=== PATIENT | male | born 1985 ===

== ENCOUNTER 2025-06-18 04:48 | Inpatient (IN) | payer OTHER ==
[~2025-06-18] VITALS: Ht 167.6 cm; Wt 77.3 kg
[2025-06-18 05:32] LABS: COVID AG,FIA SOURCE NASAL SWAB
[2025-06-18 05:34] LABS: PLATELET COUNT (AUTO) 218 K/uL (150-450); RED BLOOD CELL COUNT(AUTO) 5.92 MIL/uL (4.50-5.90); RED CELL DISTRIBUTION WIDTH 14.1 % (11.5-14.5); WHITE BLOOD COUNT (AUTO) 10.8 K/uL (4.5-11.0)
[2025-06-18 05:49] LABS: CREATININE 1.06 mg/dL (0.60-1.30); GLUCOSE,RANDOM 117 mg/dL (70-110); SODIUM SERUM 141 mmol/L (136-145); UREA NITROGEN, BLOOD 12 mg/dL (7-18)
[2025-06-18 05:50] LABS: CALCIUM, TOTAL 9.5 mg/dL (8.8-10.5); GLOMERULAR FILTR. RATE CALC > 60 mL/min (>60)
[2025-06-18 05:57] LABS: SARS-COV2 (COVID) ANTIGEN,FIA Negative (Negative)
[2025-06-18] MEDS: POTASSIUM CHLORIDE 20 MEQ ER TABLET PO ONE (06:18)
[2025-06-18] MEDS: LORazepam 2 MG/ML VIAL IM ONE (07:50)
[2025-06-18] MEDS ORDERED: ONDANSETRON HCL 4 MG/2 ML VIAL IVP PRN (09:00)
[2025-06-18] MEDS ORDERED: BISACODYL 10 MG RECTAL RECTAL SUPPOSITORY PR PRN (09:00)
[2025-06-18] MEDS: PANTOPRAZOLE SODIUM 40 MG DR TABLET PO SCH (09:00)
[2025-06-18] MEDS: DOCUSATE SODIUM 100 MG CAPSULE PO SCH (09:00)
[2025-06-18] MEDS ORDERED: MAGNESIUM HYDROXIDE SUSPENSION 30 ML UDCUP PO PRN (09:00)
[2025-06-18] MEDS: HEPARIN SODIUM,PORCINE 5,000 UNITS/ML VIAL SQ SCH (16:17)
[2025-06-18 16:36] VITALS: BP 120/84; PULSE 89; RESP 18; TEMP 97.7; O2SAT 100
[2025-06-18 19:47] VITALS: BP 125/81; PULSE 92; RESP 18; TEMP 97.7; O2SAT 98
[2025-06-18] MEDS: ZOLPIDEM TARTRATE 5 MG TABLET PO PRN (20:53)
[2025-06-19 05:29] VITALS: BP 111/74; PULSE 76; RESP 18; TEMP 98.1; O2SAT 97
[2025-06-19 09:07] VITALS: BP 112/65; PULSE 80; RESP 20; TEMP 97.7; O2SAT 99
[2025-06-19 14:02] LABS: APPEARANCE,URINE CLEAR (CLEAR); GLUCOSE, URINE (UA) NEGATIVE (NEGATIVE); LEUKOCYTE ESTERASE ,URINE NEGATIVE (NEGATIVE); NITRATE,URINE NEGATIVE (NEGATIVE); OCCULT BLOOD,URINE NEGATIVE (NEGATIVE); PH,URINE DRUG SCREEN 5.5 (5.0-8.0); SPECIFIC GRAVITIY, URINE 1.009 (1.003-1.030)
[2025-06-19 16:14] LABS: ALCOHOL, URINE DRUG SCREEN NEGATIVE (NEGATIVE); AMPHET/METH SCREEN,URINE NEGATIVE (NEGATIVE); BARBITURATE SCREEN, URINE NEGATIVE (NEGATIVE); CANNABINOID SCREEN,URINE NEGATIVE (NEGATIVE); COCAINE SCREEN,URINE NEGATIVE (NEGATIVE); METHADONE SCREEN, URINE NEGATIVE (NEGATIVE)
[2025-06-19 20:12] VITALS: BP 105/61; PULSE 78; RESP 18; TEMP 98.2; O2SAT 97
[2025-06-20] MEDS: ACETAMINOPHEN 325 MG TABLET PO PRN (02:25)
[2025-06-20 04:27] VITALS: BP 117/82; PULSE 90; RESP 18; TEMP 97.9; O2SAT 97
[2025-06-20 07:07] LABS: PHOSPHORUS 3.2 mg/dL (2.5-4.9)
[2025-06-20 10:07] VITALS: BP 106/71; PULSE 75; RESP 18; TEMP 97.5; O2SAT 98
[2025-06-20 20:28] VITALS: BP 117/73; PULSE 80; RESP 18; TEMP 98.1; O2SAT 98
[2025-06-21 05:00] VITALS: BP 108/71; PULSE 76; RESP 17; TEMP 98.4; O2SAT 100
[2025-06-21 07:05] LABS: CALCIUM, TOTAL 8.9 mg/dL (8.8-10.5); CREATININE 1.04 mg/dL (0.60-1.30); GLOMERULAR FILTR. RATE CALC > 60 mL/min (>60); GLUCOSE,RANDOM 96 mg/dL (70-110); SODIUM SERUM 142 mmol/L (136-145); UREA NITROGEN, BLOOD 12 mg/dL (7-18)
[2025-06-21 09:15] VITALS: BP 109/76; PULSE 86; RESP 18; TEMP 98; O2SAT 97
[2025-06-21] MEDS: RINGERS SOLUTION,LACTATED 1,000 ML IV SCH (15:55)
[2025-06-22 05:06] VITALS: BP 120/80; PULSE 97; RESP 20; TEMP 97.8; O2SAT 98
[2025-06-22 08:00] VITALS: BP 125/76; PULSE 100; RESP 20; TEMP 97.3; O2SAT 97
[2025-06-22 20:01] VITALS: BP 128/86; PULSE 102; RESP 20; TEMP 97.5; O2SAT 98
[2025-06-23 04:37] VITALS: BP 110/85; PULSE 101; RESP 18; TEMP 97.2; O2SAT 97
[2025-06-23 08:54] VITALS: BP 105/75; PULSE 84; RESP 20; TEMP 97.9; O2SAT 100
[2025-06-23 20:00] VITALS: BP 116/82; PULSE 92; RESP 20; TEMP 97.7; O2SAT 100
[2025-06-24 05:53] VITALS: BP 119/79; PULSE 90; RESP 20; TEMP 97.7; O2SAT 99
[2025-06-24 08:58] VITALS: BP 121/76; PULSE 77; RESP 18; TEMP 97.5; O2SAT 100
[2025-06-24 20:05] VITALS: BP 112/78; PULSE 87; RESP 18; TEMP 98.1; O2SAT 97
[2025-06-25 05:31] VITALS: BP 101/72; PULSE 70; RESP 18; TEMP 97.9; O2SAT 96
[2025-06-25 08:47] VITALS: BP 105/67; PULSE 73; RESP 18; TEMP 97.7; O2SAT 98
[2025-06-25 12:15] LABS: GLUCOMETER DEV NAME(LOC) 6N.1C; GLUCOSE,POINT OF CARE 113 MG/DL (70-110)
[2025-06-25 16:05] VITALS: BP 105/80; PULSE 71; RESP 17; TEMP 97.5; O2SAT 98
[2025-06-26 05:29] VITALS: BP 111/83; PULSE 96; RESP 20; TEMP 98.6; O2SAT 96
[2025-06-26 08:00] VITALS: BP 118/70; PULSE 92; RESP 19; TEMP 97.2; O2SAT 97
[2025-06-26] MEDS: RINGERS SOLUTION,LACTATED 500 ML IV ONE (13:19)
[2025-06-26] MEDS ORDERED: QUET25TA PO (14:28)
[2025-06-26] MEDS ORDERED: QUET100T PO (14:29)
[2025-06-26] MEDS ORDERED: BUSP5TAB20 PO (14:31)
== END 2025-06-26 23:45 | DRG 641 ==
LOC: EMS 04:48 → EDH 08:46 → 6S 13:49
PROVIDERS: ADMIT Internal Medicine; ATTEND Internal Medicine
DX: E87.6 Hypokalemia (principal); J45.909 Unspecified asthma, uncomplicated; F29 Unspecified psychosis not due to a substance or known physiological condition; F20.9 Schizophrenia, unspecified; F41.9 Anxiety disorder, unspecified; Z20.822 Contact with and (suspected) exposure to COVID-19; Z79.899 Other long term (current) drug therapy
CPT/HCPCS: 80048; 80307; 81003; 82962; 83036; 83735; 84100; 84132; 85025; 96372; 99285; G0480; J1200; J1630; J1644; J2060; J7120